=== PATIENT | female | born 1935 | race Caucasian/White ===

== ENCOUNTER 2019-12-31 12:21 | Emergency (ER) | payer OTHER ==
[~2019-12-31] VITALS: Ht 160 cm; Wt 46.3 kg
[2019-12-31] MEDS ORDERED: NEXIUM40 MG PO (12:37)
[2019-12-31] MEDS ORDERED: BYSTOLIC10 MG PO (12:37)
[2019-12-31] MEDS ORDERED: SERTRALINE HCL100 MG PO (12:37)
[2019-12-31] MEDS ORDERED: SIMVASTATIN80 MG PO (12:38)
[2019-12-31] MEDS ORDERED: LOSARTAN-HCTZ1 EAC3 PO (12:38)
[2019-12-31] MEDS ORDERED: FENTANYL1 EACH TOP (12:39)
[2019-12-31] MEDS ORDERED: VITAMIN D310 MC4 PO (12:39)
[2019-12-31] MEDS ORDERED: OXYCODONE HCL 55 MG PO (13:51)
[2019-12-31] MEDS ORDERED: OXCARBAZEPINE150 MG PO (13:51)
[2019-12-31 14:13] VITALS: BP 139/65
== END 2019-12-31 14:13 | disposition home or self-care (01) ==
LOC: M.ERS 12:21
DX: G50.0 Trigeminal neuralgia (principal); I10 Essential (primary) hypertension; E78.00 Pure hypercholesterolemia, unspecified; Z79.899 Other long term (current) drug therapy; Z86.73 Personal history of transient ischemic attack (TIA), and cerebral infarction without residual deficits; Z96.652 Presence of left artificial knee joint; Z90.710 Acquired absence of both cervix and uterus

== ENCOUNTER 2020-01-06 11:37 | Emergency (ER) | payer OTHER ==
[~2020-01-06] VITALS: Ht 160 cm; Wt 45.4 kg
[~2020-01-06 11:37] MED LIST: BYSTOLIC10 MG PO; FENTANYL1 EACH TOP; LOSARTAN-HCTZ1 EAC3 PO; NEXIUM40 MG PO; OXCARBAZEPINE150 MG PO; OXYCODONE HCL 55 MG PO; SERTRALINE HCL100 MG PO; SIMVASTATIN80 MG PO; VITAMIN D310 MC4 PO
[2020-01-06] MEDS ORDERED: PREDNISONE 10 M10 MG PO (14:25)
[2020-01-06] MEDS ORDERED: NEURONTIN 300M300 M2 PO (14:26)
[2020-01-06 14:48] VITALS: BP 160/58
== END 2020-01-06 14:48 | disposition home or self-care (01) ==
LOC: M.ERS 11:37
DX: G50.0 Trigeminal neuralgia (principal); I10 Essential (primary) hypertension; E78.00 Pure hypercholesterolemia, unspecified; Z91.030 Bee allergy status; Z88.8 Allergy status to other drugs, medicaments and biological substances; Z79.899 Other long term (current) drug therapy; Z96.652 Presence of left artificial knee joint

== ENCOUNTER 2020-01-09 09:35 | Emergency (ER) | payer OTHER ==
[~2020-01-09] VITALS: Ht 160 cm; Wt 45.8 kg
[~2020-01-09 09:35] MED LIST changes: +NEURONTIN 300M300 M2 PO; +PREDNISONE 10 M10 MG PO
[2020-01-09] MEDS ORDERED: ZOFRAN ODT4 MG DISSOLVE (11:26)
[2020-01-09 12:02] VITALS: BP 170/70
== END 2020-01-09 12:03 | disposition home or self-care (01) ==
LOC: M.ERS 09:35
DX: G50.0 Trigeminal neuralgia (principal); I10 Essential (primary) hypertension; E78.00 Pure hypercholesterolemia, unspecified; Z90.710 Acquired absence of both cervix and uterus; Z96.652 Presence of left artificial knee joint; Z91.030 Bee allergy status